=== PATIENT | male | born 1960 | race Caucasian/White ===

== ENCOUNTER 2018-02-15 22:17 | Emergency (ER) | payer OTHER ==
[2018-02-15 22:54] VITALS: TEMP 97.8; O2SAT 95
[2018-02-15 23:49] LABS: BASOPHILS % (AUTO) 1 % (0-3); EOSINOPHILS % (AUTO) 2 % (0-9); HEMATOCRIT 42 % (39-53); HEMOGLOBIN 14.8 gm/dl (13.5-17.7); LYMPHOCYTES % (AUTO) 30.6 % (10-50); MEAN CORPUSCULAR HGB CONC 35.4 gm/dl (32.0-36.0); MEAN CORPUSCULAR VOLUME 90 fL (80-100); MONOCYTES % (AUTO) 8.8 % (0-12); NEUTROPHILS % (AUTO) 57.8 % (37-80)
[2018-02-16 00:06] LABS: ALBUMIN 3.7 gm/dl (3.4-5.0); ALKALINE PHOSPHATASE 80 IU/L (46-116); ALT 54 IU/L (14-63); AST 24 IU/L (15-37); BILIRUBIN,TOTAL 0.4 mg/dl (0.2-1.0); BLOOD UREA NITROGEN 17 mg/dl (7-18); CALCIUM 8.6 mg/dl (8.5-10.1); CARBON DIOXIDE 28.5 mEq/L (21-32); CHLORIDE 101 mMol/L (98-107); CREATININE 1.21 mg/dl (0.80-1.30); GLOM FILT RATE 62 mL/min (>60); GLUCOSE 159 mg/dl (74-106); POTASSIUM 3.3 mMol/L (3.5-5.1); SODIUM 136 mMol/L (136-145); TOTAL PROTEIN 6.8 gm/dl (6.4-8.2); TROP I < 0.017 ng/ml (0.000-0.056)
[2018-02-16 01:07] LABS: BASOPHILS % (AUTO) 1 % (0-3); EOSINOPHILS % (AUTO) 2 % (0-9); HEMATOCRIT 42 % (39-53); HEMOGLOBIN 14.8 gm/dl (13.5-17.7); LYMPHOCYTES % (AUTO) 30.6 % (10-50); MEAN CORPUSCULAR HGB CONC 35.4 gm/dl (32.0-36.0); MEAN CORPUSCULAR VOLUME 90 fL (80-100); MONOCYTES % (AUTO) 8.8 % (0-12); NEUTROPHILS % (AUTO) 57.8 % (37-80)
[2018-02-16 01:12] VITALS: PULSE 68
[2018-02-16 01:16] VITALS: BP 133/80; RESP 16
== END 2018-02-16 00:45 | disposition home or self-care (01) | DRG 641 ==
LOC: ED 22:17
DX: E87.6 Hypokalemia (principal); R09.89 Other specified symptoms and signs involving the circulatory and respiratory systems
CPT/HCPCS: 36415; 80053; 84484; 85025; 93005; 99282; 99283